=== PATIENT | male | born 1970 | race Caucasian/White ===

== ENCOUNTER 2020-04-03 12:48 | Emergency (ER) | payer OTHER, SELFPAY ==
[2020-04-03 13:03] VITALS: BP 146/75; PULSE 87; RESP 17; TEMP 36.7; O2SAT 98; BMI 24.0
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
--- NOTE | 2020-04-03 14:43 | CT_ITS ---
EXAMINATION: CT ANKLE, RIGHT CLINICAL INFORMATION: Complex tibia-fibular fracture COMPARISON: Ankle radiographs from 04/03/2020 TECHNIQUE: Noncontrast multidetector CT imaging examination of the right ankle was performed. Axial images are presented at 0.6 mm and 2 mm slice thickness. Coronal and sagittal reformatted images were generated and reviewed. DLP: 143 mGy-cm. FINDINGS: Nondisplaced acute, transverse fracture of the distal fibular metaphysis. Acute, comminuted pilon fracture of the distal tibial epiphysis and metaphysis. The medial malleolar fragment is in near-anatomic position. The articular surface of the tibial plafond is depressed by up to 0.4 cm. There is mild anterosuperior displacement of the major fragments of the anterior tibial plafond. The oblique component of the fracture through the anterior metaphysis projects anterior to the tip of the antegrade intramedullary nail. The distal interlocking screws are intact. A few small ossific fragments are displaced into the tibiotalar joint space. The talar dome is smooth contour; no acute osteochondral fracture of the talar dome. Bones have normal alignment within the proximal foot. There is an acute, incomplete, nondisplaced fracture of the medial talus at the margin of the mid subtalar joint (region of articulation with the sustentaculum yary). There is edema/hemorrhage of subcutaneous tissues of the lower leg and ankle region. Achilles tendon is normal. The peroneal, fracture, extensor and tibialis tendons have an intact appearance. The posterior tibial and flexor digitorum tendons are partially displaced into the fracture gap along the posterior margin of the medial malleolus. CT/CT ankle RT wo con IMPRESSION: * Comminuted, displaced pilon fracture, with 0.4 cm of depression of the articular surface. * The distal fibular fracture is nondisplaced. * The visualized tibial intramedullary nail, and distal interlocking screws, are intact. * Note that the posterior tibial tendon and flexor digitorum tendon are partially displaced into the fracture gap along the posterior margin of the medial malleolus. * There is an acute, nondisplaced fracture of the medial talus at the margin of the mid subtalar joint (region of articulation with the sustentaculum yary).
[2020-04-03] MEDS: HYDROcodone Bit/Acetam 5/325 TABLET 1 TAB PO (14:49)
[2020-04-03 16:55] VITALS: BP 147/84; PULSE 76; RESP 16; TEMP 37.2; O2SAT 97
[2020-04-03 17:33] LABS: COVID-19 Test Negative (Negative); IDNOW Serial# 9DD0AD1C
[2020-04-03] MEDS: Morphine Sulfate 4 MG/ML CARTRIDGE IVPUSH (17:46)
--- NOTE | 2020-04-03 18:20 | PC.NURSE ---
NURSE TO NURSE GIVEN TO KAYCE RN AT [facility]. WAITING FOR [facility] TRANSPORT.
[2020-04-03 18:25] VITALS: BP 144/78; PULSE 65; RESP 18; TEMP 36.8; O2SAT 100
== END 2020-04-03 20:01 | disposition short-term general hospital (02) ==
PROVIDERS: Physician Assistant; Emergency Provider Internal Medicine
DX: S82.201A Unspecified fracture of shaft of right tibia, initial encounter for closed fracture (principal); M25.571 Pain in right ankle and joints of right foot; V86.56XA Driver of dirt bike or motor/cross bike injured in nontraffic accident, initial encounter; Y93.9 Activity, unspecified; Y92.9 Unspecified place or not applicable; Y99.9 Unspecified external cause status; Z20.828 Contact with and (suspected) exposure to other viral communicable diseases
CPT/HCPCS: 73610; 73700; 87635; 96374; 99284; 99285; J2270

== ENCOUNTER 2022-02-24 11:32 | Outpatient (REF) | payer OTHER, SELFPAY ==
[2022-02-24 14:54] LABS: Appearance Urine Clear; Color Urine Yellow; Glucose Urine UA Negative (Negative); Leukocyte Esterase Urine Negative (Negative); Nitrite Urine Negative (Negative); PH 6.5 (5.0-9.0); Urine Blood Negative (Negative); Urine Ketones Negative (Negative); Urine Protein Negative (Neg-Trace)
[2022-02-24 15:33] LABS: Alanine Aminotransferase 22 U/L (0-40); Albumin Level 4.9 g/dL (3.5-5.0); Alkaline Phosphatase 71 U/L (39-117); Anion Gap 16 (12-20); Aspartate Amino Transferase 21 U/L (5-37); Bilirubin Total 0.6 mg/dL (0.0-1.0); Blood Urea Nitrogen 18 mg/dL (9-16); Calcium 9.9 mg/dL (8.4-10.2); Carbon Dioxide 27 mmol/L (22-29); Chloride 102 mmol/L (96-108); Cholesterol 256 mg/dL; Estimated Glomerular Filt Rate > 60; Glucose Fasting 97 mg/dL (60-99); HDL Cholesterol 51 mg/dL; LDL Cholesterol Calculated 187 mg/dl; Potassium 4.5 mmol/L (3.3-5.1); Sodium 140 mmol/L (135-145); Total Protein 7.7 g/dL (6.5-8.0); Triglycerides 90 mg/dL
[2022-02-24 15:34] LABS: Creatinine Urine 134.79 mg/dL; Microalbum/Creatinine Ratio Ur 3.7 ug/mg cr
[2022-02-24 15:53] LABS: TSH reflex Free T4 1.07 uIU/mL (0.32-4.0)
== END 2022-02-24 11:33 | disposition home or self-care (01) ==
LOC: HO.WFDLDS 11:32
PROVIDERS: Visit Provider Family Medicine
DX: Z00.00 Encounter for general adult medical examination without abnormal findings (principal); Z12.5 Encounter for screening for malignant neoplasm of prostate; I10 Essential (primary) hypertension
CPT/HCPCS: 36415; 80053; 80061; 81003; 82043; 84153; 84443

== ENCOUNTER → 2022-05-16 15:48 | Outpatient (BNVA) | payer OTHER, SELFPAY | PROVIDERS: PCP Family Medicine; Visit Provider Nurse Practitioner | DX: Z01.818 Encounter for other preprocedural examination (principal) | CPT/HCPCS: 99202 ==

== ENCOUNTER 2022-07-31 09:47 | Outpatient (REF) | payer OTHER, SELFPAY ==
[2022-07-31 12:45] LABS: Alanine Aminotransferase 30 U/L (0-40); Albumin Level 4.6 g/dL (3.5-5.0); Alkaline Phosphatase 82 U/L (39-117); Anion Gap 13 (12-20); Aspartate Amino Transferase 23 U/L (5-37); Bilirubin Total 0.5 mg/dL (0.0-1.0); Blood Urea Nitrogen 19 mg/dL (9-16); Calcium 9.6 mg/dL (8.4-10.2); Carbon Dioxide 30 mmol/L (22-29); Chloride 104 mmol/L (96-108); Cholesterol 240 mg/dL; Estimated Glomerular Filt Rate > 60; Glucose Fasting 91 mg/dL (60-99); HDL Cholesterol 52 mg/dL; LDL Cholesterol Calculated 164 mg/dl; Potassium 4.5 mmol/L (3.3-5.1); Sodium 142 mmol/L (135-145); Total Protein 7.1 g/dL (6.5-8.0); Triglycerides 121 mg/dL
== END 2022-07-31 09:48 | disposition home or self-care (01) ==
LOC: HO.WFDLDS 09:47
PROVIDERS: Visit Provider Family Medicine
DX: Z00.00 Encounter for general adult medical examination without abnormal findings (principal); E78.00 Pure hypercholesterolemia, unspecified
CPT/HCPCS: 36415; 80053; 80061

== ENCOUNTER 2022-12-29 12:59 | Day surgery (SDC) | payer OTHER, SELFPAY ==
[2022-12-27 14:28] VITALS: BMI 24.9
--- NOTE | 2022-12-28 09:30 | HO.ANESPROP2 ---
Documented by User: Maribel Stein NP 12/28/22 09:30 HPI - Anesthesia Eval Consult details Narrative: 52yo M for Colonoscopy PMF Active Problems Active Problems: All Active Problems (Updated 05/19/22 @ 08:03 by VLADIMIR Durand) Family planning (Acute) Pre-op examination (Acute) Screening for colon cancer (Acute) Screening for prostate cancer (Acute) Hypercholesterolemia (Acute) Adult general medical exam (Acute) Laboratory tests ordered as part of a complete physical exam (CPE) (Acute) Sebaceous cyst (Acute) Essential hypertension (Acute) Past Medical History Medical History Tibial fracture Family History Family History Paternal Uncle Prostate cancer Surgical History Surgical History No pertinent past surgical history Social History Social History Alcohol intake: former Patient Tobacco Use Status: Never used Tobacco e-Cigarette/Vaping Use: Never Used Second Hand Smoke Exposure: No Are you DNR?: No Advance Directives: No Advance Directives Information Provided: Yes service: No Current occupational status: employed Current occupational exposures/hazards: No Cognitive needs: No Hearing needs: No Vision needs: No Meds Allergies Allergy/AdvReac Type Severity Reaction Status Date / Time No Known Allergies Allergy Verified 07/26/22 16:36 [No Known Allergies*] Exam Exam Date and Time: December 28, 2022 0930 Height,Weight and Vital Signs: Height 5 ft 4 in Weight 65.771 kg Assessment and Plan Assessment Anesthesia Assessment: Chart Reviewed Documented by User: Christine Finnegan MD 12/29/22 13:48 PMFSH Past Medical History Medical History Tibial fracture Family History Family History Paternal Uncle Prostate cancer Family history of problems with anesthesia: No Surgical History Surgical History No pertinent past surgical history History of Problems with Anesthesia: No Social History Social History Alcohol intake: former Patient Tobacco Use Status: Never used Tobacco e-Cigarette/Vaping Use: Never Used Second Hand Smoke Exposure: No Are you DNR?: No Advance Directives: No Advance Directives Information Provided: Yes service: No Current occupational status: employed Current occupational exposures/hazards: No Cognitive needs: No Hearing needs: No Vision needs: No Meds Allergies Allergy/AdvReac Type Severity Reaction Status Date / Time No Known Allergies Allergy Verified 07/26/22 16:36 [No Known Allergies*] Exam Airway Mallampati Class: II TM Dist: >3cm Neck ROM: Full Heart: rrr Lungs: cta Assessment and Plan Assessment Anesthesia Assessment: Anesthesia Plan Discussed Final Anesthetic Review Family History of Problems with Anesthesia: No History of Problems with Anesthesia: No NPO: Yes ASA Class: II Final Preanesthetic Review: No Changes in Pt Med Stat, Meds/Allgs Chart Reviewed and Consent Obtained/Reviewed Patient Risk: Intermediate Procedure Risk: Intermediate Anesthetic Plan Anesthetic Plan: MAC: Disposition: Standard PACU
[2022-12-29 13:17] VITALS: BP 162/78; PULSE 57; RESP 20; TEMP 36.8; O2SAT 98
[2022-12-29] MEDS: Lactated Ringers 1,000 ML 100 ML IVCONT (13:39)
--- NOTE | 2022-12-29 13:54 | MHC.SHP ---
Pre-Procedural Eval Section A Date of Service: 12/29/22 The patient is an INPATIENT: No The History & Physical has been completed within 30 days and I have reviewed it.: No Section B Chief Complaint: screening Relevant Family History (Specify if Yes): No Relevant Social History: None Present Medications: see Short Stay Collaborative assessment Medical History: Significant History (hypertension) History of Previous Operations: Relevant previous surgery/procedure and date(s) (Tibial fracture) Allergies: Allergies Allergy/AdvReac Type Severity Reaction Status Date / Time No Known Allergies Allergy Verified 07/26/22 16:36 [No Known Allergies*] Review of Systems Sugical H&P ROS: Negative: Constitution, Cardiovascular, Respiratory and Gastrointestinal Exam Surgical H&P Exam: Normal: Heart, Normal: Lungs, Normal: Extremities and Normal: Abdomen Plan Diagnosis/Plan: Unchanged I have reviewed the history and physical and performed a pertinent physical examination on my patient. No changes have occurred unless specified. Time Spent With Patient Time: Total time managing care of this patient today ____ minutes.
--- NOTE | 2022-12-29 15:37 | W.PM.OPN ---
Operative Note Operative Note Date of Service: 12/29/22 Narrative: COLONOSCOPY TILL CECUM WITH BIOPSIES AND SNARE POLYPECTOMY Pre-op diagnosis: Colon cancer screening Post-op diagnosis:? Colon polyps, diverticulosis, hemorrhoids Endoscopist:? Lorena Guthrie MD Anesthesia:?MAC Consent: Indications for the procedure and potential complications of bleeding, perforation, reaction to medications and missed diagnosis were discussed with the patient and informed consent was obtained. Instrument: Olympus PCF H 190 L variable stiffness pediatric colonoscope Monitoring: Vital signs and clinical assessment, intermittent blood pressure monitoring, continuous EKG monitoring, Pulse oximetry and Carbon Dioxide monitoring were done throughout the procedure. Please see anesthesia flowsheet. Colon withdrawl time was 18 minutes. Procedure: The patient was placed in the left lateral decubitis position and pre-procedure medications were administered. After a digital rectal examination of the ano-rectum, the video colonoscope was inserted into the rectum and advanced through the colon to the cecum. The colonoscope was slowly withdrawn in a retrograde panoramic fashion and the colon mucosa was carefully examined including a retroflexed view of the rectum. Findings and interventions are described below. Procedure Difficulty: Without difficulty Findings: Terminal Ileum: Not evaluated Cecum: Normal Ascending Colon: A 7-8 mm sessile polyp - removed with a cold snare Transverse Colon: A 10-12 mm sessile polyp -removed with cold snare Descending Colon: Normal Sigmoid Colon: Removed with a cold biopsy. A 2-3 mm sessile polyp - Moderate diverticulosis Rectum: Normal Ano-rectum: Small internal hemorrhoids Colon preparation: Good after copious irrigation and fair in the right colon with scattered adherent stools which could not be flushed. Impression and Post Procedure Diagnosis: Colonoscopy Findings: Three small to medium sized polyps removed Moderate diverticulosis seen in the sigmoid colon Small hemorrhoids on retroflexed exam. Plan: Await pathology results Patient has an appointment on 01/19/23 in the GI Clinic with Marisol Gage NP . Repeat Colonoscopy interval based on path results - in 3 years if polyps are adenomatous and due to fair prep in the right colon. Above findings were reviewed with the patient and colon polyps and diverticulosis handouts were given in the discharge area
[2022-12-29 16:15] VITALS: BP 88/50; PULSE 60; RESP 16; TEMP 36.2; O2SAT 98
[2022-12-29 16:30] VITALS: BP 111/65; PULSE 59; RESP 16; O2SAT 98
[2022-12-29 16:45] VITALS: BP 119/84; PULSE 60; RESP 14; O2SAT 99
[2022-12-29 17:00] VITALS: BP 131/84; PULSE 58; RESP 16; TEMP 36.2; O2SAT 99
== END 2022-12-29 17:08 | disposition home or self-care (01) ==
PROVIDERS: PCP Family Medicine; Visit Provider Internal Medicine Gastroenterology
PROC: 0DJD8ZZ Inspection of Lower Intestinal Tract, Via Natural or Artificial Opening Endoscopic (ICD-10-PCS; CPT 45378; principal; 2022-12-29 14:40)
DX: Z12.11 Encounter for screening for malignant neoplasm of colon (principal); D12.2 Benign neoplasm of ascending colon; K63.5 Polyp of colon; K57.30 Diverticulosis of large intestine without perforation or abscess without bleeding; K64.8 Other hemorrhoids; I10 Essential (primary) hypertension; E78.00 Pure hypercholesterolemia, unspecified; Z87.81 Personal history of (healed) traumatic fracture
CPT/HCPCS: 45385; 45380; 88305

== ENCOUNTER → 2022-12-29 12:59 | Outpatient (BNV) | payer OTHER, SELFPAY | PROVIDERS: PCP Family Medicine; Visit Provider Internal Medicine Gastroenterology | DX: Z12.11 Encounter for screening for malignant neoplasm of colon (principal); D12.4 Benign neoplasm of descending colon; D12.3 Benign neoplasm of transverse colon; D12.5 Benign neoplasm of sigmoid colon; K57.30 Diverticulosis of large intestine without perforation or abscess without bleeding; K64.9 Unspecified hemorrhoids | CPT/HCPCS: 45380; 45385 ==

== ENCOUNTER 2023-01-19 13:10 | Outpatient (AMB) | payer OTHER, SELFPAY ==
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
[2023-01-19 13:14] VITALS: BP 138/77; PULSE 64; BMI 24.6
== END 2023-01-19 14:15 | disposition home or self-care (01) ==
PROVIDERS: PCP Family Medicine; Visit Provider Nurse Practitioner
DX: K57.30 Diverticulosis of large intestine without perforation or abscess without bleeding (principal); D12.2 Benign neoplasm of ascending colon; D12.5 Benign neoplasm of sigmoid colon; Z71.2 Person consulting for explanation of examination or test findings; D12.3 Benign neoplasm of transverse colon
CPT/HCPCS: 99213

== ENCOUNTER → 2023-01-19 13:10 | Outpatient (BNVA) | payer OTHER, SELFPAY | PROVIDERS: PCP Family Medicine; Visit Provider Nurse Practitioner | DX: D12.2 Benign neoplasm of ascending colon (principal); K57.30 Diverticulosis of large intestine without perforation or abscess without bleeding; K64.8 Other hemorrhoids; Z98.890 Other specified postprocedural states | CPT/HCPCS: 99212 ==